=== PATIENT | female | born 1935 | race Caucasian/White ===

== ENCOUNTER 2019-11-10 09:36 | Emergency (ER) | payer MEDICARE, OTHER ==
[~2019-11-10] VITALS: Ht 154.9 cm; Wt 58.0 kg
[2019-11-10] MEDS ORDERED: SODIUM CHLORIDE FLUSH 10ML SYR IVF ONE (10:30)
[2019-11-10 10:52] LABS: BASOPHILS # (AUTO) 0.01 x10^3/uL (0-0.1); BASOPHILS % (AUTO) 0 % (0-1); EOSINOPHILS # (AUTO) 0.02 x10^3/uL (0-0.4); EOSINOPHILS % (AUTO) 0 % (1-7); LYMPHOCYTES # (AUTO) 0.63 x10^3/uL (1-3.4); LYMPHOCYTES % (AUTO) 15 % (22-44); MD NO; MEAN CORPUSCULAR HEMOGLOBIN 31.1 pg (27.0-34.8); MEAN CORPUSCULAR HGB CONC 33.7 g/dL (32.4-35.8); MEAN CORPUSCULAR VOLUME 92.4 fL (80-100); MEAN PLATELET VOLUME 7.6 fL (7.4-10.4); MONOCYTES # (AUTO) 0.44 x10^3/uL (0.2-0.8); MONOCYTES % (AUTO) 11 % (2-9); NEUTROPHILS # (AUTO) 3.02 x10^3/uL (1.8-6.8); NEUTROPHILS % (AUTO) 73 % (42-75); PLATELET COUNT 254 x10^3/uL (130-400); RED BLOOD COUNT 4.11 x10^6/uL (3.82-5.3); RED CELL DISTRIBUTION WIDTH 14.1 % (9.6-15.2)
[2019-11-10 11:02] LABS: ALANINE AMINOTRANSFERASE 16 U/L (12-78); ALBUMIN 3.5 g/dL (3.4-5.0); ANION GAP 9 mmol/L (5-15); CALCIUM 8.5 mg/dL (8.5-10.1); CHLORIDE 100 mmol/L (98-107); CREATININE 0.66 mg/dL (0.55-1.02)
[2019-11-10 11:05] LABS: ALKALINE PHOSPHATASE 57 U/L (45-117); BILIRUBIN,TOTAL 1.1 mg/dL (0.2-1.0); TOTAL PROTEIN 6.8 g/dL (6.4-8.2)
--- NOTE | 2019-11-10 11:10 | NUR ---
AMBULATED TO BATHROOM WITH ASSISTANCE AND URINE SAMPLE OBTAINED. C/O CONTINUED ABDOMINAL PAIN
[2019-11-10] MEDS ORDERED: ONDANSETRON 2MG/ML, 2ML IVPush ONE (11:30)
[2019-11-10] MEDS ORDERED: MORPHINE SULFATE 4 MG/ML, 1ML IVPush PRN (11:30)
[2019-11-10] MEDS ORDERED: ONDANSETRON 2MG/ML, 2ML ONE (11:40)
[2019-11-10] MEDS ORDERED: MORPHINE SULFATE 4 MG/ML, 1ML ONE (11:41)
--- NOTE | 2019-11-10 11:45 | NUR ---
MEDICATED FOR ABDOMINAL PAIN NOTED ON JUL.
--- NOTE | 2019-11-10 11:48 | NUR ---
PT AT CT
[2019-11-10] MEDS ORDERED: OMNIPAQUE 350 MG/ML, 100ML BOTTLE ONE (12:03)
[2019-11-10 12:45] LABS: MICROSCOPIC AUTO
--- NOTE | 2019-11-10 13:06 | NUR ---
OUB TO BATHROOM WITHOUT ASSISTANCE. AWAITING MD GAFFNEY-LUDIN
[2019-11-10] MEDS ORDERED: metroNIDAZOLE 500 MG TABLET ONE (13:20)
[2019-11-10] MEDS ORDERED: CIPROFLOXACIN 500 MG TABLET ONE (13:20)
--- NOTE | 2019-11-10 13:27 | NUR ---
GIVEN ANTIBIOTICS NOTED ON JUL. AWAITING DISCHARGE.
[2019-11-10] MEDS ORDERED: metroNIDAZOLE 500 MG TABLET PO ONE (13:30)
[2019-11-10] MEDS ORDERED: CIPROFLOXACIN 500 MG TABLET PO ONE (13:30)
[2019-11-10 14:02] VITALS: BP 132/41
--- NOTE | 2019-11-10 14:03 | NUR ---
Patient given discharge instructions and Rx, they have confirmed that they understand the instructions. Patient ambulatory with steady gait.
== END 2019-11-10 14:06 | disposition home or self-care (01) ==
LOC: ED 10:58
DX: K57.32 Diverticulitis of large intestine without perforation or abscess without bleeding (principal); K59.00 Constipation, unspecified; R10.84 Generalized abdominal pain
CPT/HCPCS: 36415; 74021; 74177; 80053; 81001; 83690; 85025; 96374; 96375; 99285; J2270; J2405; Q9967